=== PATIENT | female | born 2000 | race Caucasian/White ===

== ENCOUNTER 2020-05-30 02:33 | Emergency (ER) | payer SELFPAY ==
[~2020-05-30 02:33] MED LIST: CHLO118L TP; CLIN150C18 PO
== END 2020-05-30 02:59 | disposition home or self-care (01) ==
LOC: EDUNIT# 02:33 → ER FS 02:37
DX: Z04.1 Encounter for examination and observation following transport accident (principal)

== ENCOUNTER 2020-05-30 11:33 | Emergency (ER) | payer SELFPAY ==
[2020-05-30] MEDS ORDERED: OLANZapine 5 MG ODT (ZyPREXA ZYDIS) PO ONE (13:00)
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
[2020-05-30 13:51] LABS: AMPHETAMINE SCREEN, URINE NEGATIVE (NEGATIVE); BENZODIAZEPINES SCREEN URINE NEGATIVE (NEGATIVE); CANNABINOID SCREEN, URINE POSITIVE (NEGATIVE); COCAINE SCREEN URINE NEGATIVE (NEGATIVE); METHAMPHETAMINE SCREEN URINE S NEGATIVE (NEGATIVE)
[2020-05-30 13:52] LABS: BARBITURATE SCREEN URINE NEGATIVE (NEGATIVE); METHADONE STAT NEGATIVE (NEGATIVE); OPIATE SCREEN URINE NEGATIVE (NEGATIVE); OXYCODONE STAT NEGATIVE (NEGATIVE); PROPOXYPHENE STAT NEGATIVE (NEGATIVE); TRICYCLIC ANTIDEPRESSANTS SCRE NEGATIVE (NEGATIVE)
[2020-05-30 14:38] VITALS: BP 115/65
== END 2020-05-30 14:38 | disposition home or self-care (01) ==
LOC: EDUNIT# 11:33 → ER FS 11:35
DX: F15.10 Other stimulant abuse, uncomplicated (principal)
CPT/HCPCS: 80306; 82962; 99283